=== PATIENT | female | born 1970 | race Caucasian/White ===

== ENCOUNTER 2018-05-08 19:31 | Observation (INO) | payer OTHER, SELFPAY ==
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
[2018-05-08] VITALS (12 sets, daily range): BP systolic 83–120; BP diastolic 56–80; PULSE 50–72; RESP 12–16; TEMP 36.3–37.2; O2SAT 92–100; BMI 21.5; BMI 21.4
--- NOTE | 2018-05-08 16:22 | DCINST_ITS ---
Discharge Diet: No Restrictions Discharge Activity: Return to Normal Activity, May not drive while taking narcotic pain medications. Lifting Restrictions: no lifting greater than 50 pounds for one month Call your doctor if your incision/area has: Continuous Slow Oozing, Foul Smelling Discharge Call your doctor if you observe: Fever of 101 or Higher Additional Dressing/Incision Instructions:: Leave dressing in place. May get wet in shower. Do not soak - no tub baths/swimming Allergies/Adverse Reactions: Allergies ciprofloxacin [From Cipro] Allergy (Verified 05/08/18 13:56) Other acetaminophen Adverse Reaction (Verified 05/08/18 13:56) Nausea adhesive tape Adverse Reaction (Verified 05/08/18 13:56) Rash azithromycin Adverse Reaction (Verified 05/08/18 13:56) Nausea Penicillins [PCN] Adverse Reaction (Verified 05/08/18 13:56) Nausea Medications to take at Discharge Biotin 1 mg PO DAILY 12/29/16 Calcium (Elemental) [Os-Nikolay 500] 500 mg PO DAILY@0800 05/07/18 Ibuprofen [Motrin] 600 mg PO Q6H PRN PRN 05/07/18 Vitamin B Complex 1 each PO DAILY 05/07/18 Oxycodone [Oxyir] 5 mg PO Q8H PRN PRN 5 Days #15 tab 05/08/18 proMETHazine tablet [Phenergan tablet] 25 mg PO Q6H PRN PRN 5 Days #5 tab 05/09/18 The following prescriptions were given: proMETHazine tablet [Phenergan tablet] 25 mg PO Q6H PRN PRN 5 Days #5 tab PRN Reason: Nausea/Vomiting Oxycodone [Oxyir] 5 mg PO Q8H PRN PRN 5 Days #15 tab PRN Reason: Mod-Severe Pain (4-10/10) Primary Care Physician: Rebecca Sweeney MD [Primary Care Provider] - Test Results: Test results from this visit will be discussed in further detail at your follow- up appointment, if applicable. Please Follow Up With: Jennifer Salgado MD - call When: to be seen in 1 week, please call for date and time, thank you
[2018-05-08] MEDS: Bupivacaine 0.25% 30 ML Vial (16:40)
--- NOTE | 2018-05-08 17:18 | PCM.OPRPT ---
Report of Operation Date of Procedure: 05/08/18 Pre-Operative Diagnosis: right groin pain, history of bulge in the area Post-Operative Diagnosis: weakened fascia of Hasselbach's triangle Surgery/Procedure Performed:: right inguinal hernia repair with mesh Description of Surgical Findings:: weakened Hasselbach's triangle fascia Type of Anesthesia:: Local MAC Anesthesiologist: Sarkis Holloway Specimen's removed: none Estimated Blood Loss (mL): < 5 Fluids Replaced: 400 ml RL Description of Procedure: After informed consent was obtained, patient was brought to the Operating Room. Appropriate time out protocol was followed. She was then placed in the supine position. The patient was then placed under anesthesia. The lower torso and the right groin area and genitalia were then prepped with a surgical skin preparation and appropriate sterile surgical drapes were placed. The anatomical landmarks were identified and after anesthetizing the skin and subcutaneous tissues with local anesthetic with epinephrine, a transverse skin incision was made above the level of the internal inguinal ring. The subcutaneous tissues were then sharply dissected down to the external oblique fascia and any hemorrhage was adequately controlled with electrocoagulation. The external oblique was then divided obliquely along the fibers and a muscle-splitting incision was then made to divide the internal oblique musculature and fascia. The transversalis fascia was then identified and was then incised parallel to the inferior hypogastric vessels. The preperitoneal space was then entered. Blunt dissection was then done to identify out Harry's ligament, the pubic tubercle and a large area surrounding these landmarks for placement of the mesh. The femoral vessels were identified. The patient did not have a femoral hernia. There was no indirect inguinal hernia sac noted. The fascial area of Hasselbach's triangle was weakened but no actual defect was palpated. Because of the patient noting a bulge in the area and complaint of pain, then a medium size right sided 3D Max mesh was then placed in the preperitoneal space such that it would be overlapping medially beyond the pubic tubercle and overlapping inferior to Harry's ligament. The patient was then placed in the reversed [place] position to ensure that the mesh was laid out properly according to compressor house operator's guidelines. The mesh covered the entire wound opening also. The internal oblique fascia was then closed using interrupted 0 Vicryl suture. One of the sutures was used to lock the mesh into position. Hemostasis was carefully controlled with electrocoagulation. The external oblique fascia was then reapproximated using a running 0 Vicryl suture. This was carefully done to avoid any entrapment of blood vessels/nerves. Janice's fascia was closed using Vicryl suture in an interrupted simple fashion. The skin incision was closed with 4-0 Monocryl in a running subcuticular fashion. Cavilon and Steri-Strips were used to reinforce the skin closure and appropriate sterile dressing was applied. The patient was extubated. The patient tolerated the procedure well and there was no evidence of any complications. The patient was brought to the Recovery Room in stable condition. Grafts/Implants Used: Bard 3D Max Mesh Lot [id number] exp 2022-12-13 ref [id number] - Complications none noted - Admit VTE Documentation VTE Present on Admission: Yes VTE Mechan Device Prophylaxis: SCD's
--- NOTE | 2018-05-08 17:22 | OP.PCM_ITS ---
Report of Operation Date of Procedure: 05/08/18 Pre-Operative Diagnosis: right groin pain, history of bulge in the area Post-Operative Diagnosis: weakened fascia of Hasselbach's triangle Surgery/Procedure Performed:: right inguinal hernia repair with mesh Description of Surgical Findings:: weakened Hasselbach's triangle fascia Type of Anesthesia:: Local MAC Anesthesiologist: Sarkis Holloway Specimen's removed: none Estimated Blood Loss (mL): < 5 Fluids Replaced: 400 ml RL Description of Procedure: After informed consent was obtained, patient was brought to the Operating Room. Appropriate time out protocol was followed. She was then placed in the supine position. The patient was then placed under anesthesia. The lower torso and the right groin area and genitalia were then prepped with a surgical skin preparation and appropriate sterile surgical drapes were placed. The anatomical landmarks were identified and after anesthetizing the skin and subcutaneous tissues with local anesthetic with epinephrine, a transverse skin incision was made above the level of the internal inguinal ring. The subcutaneous tissues were then sharply dissected down to the external oblique fascia and any hemorrhage was adequately controlled with electrocoagulation. The external oblique was then divided obliquely along the fibers and a muscle-splitting incision was then made to divide the internal oblique musculature and fascia. The transversalis fascia was then identified and was then incised parallel to the inferior hypogastric vessels. The preperitoneal space was then entered. Blunt dissection was then done to identify out Harry's ligament, the pubic tubercle and a large area surrounding these landmarks for placement of the mesh. The femoral vessels were identified. The patient did not have a femoral hernia. There was no indirect inguinal hernia sac noted. The fascial area of Hasselbach's triangle was weakened but no actual defect was palpated. Because of the patient noting a bulge in the area and complaint of pain, then a medium size right sided 3D Max mesh was then placed in the preperitoneal space such that it would be overlapping medially beyond the pubic tubercle and overlapping inferior to Harry's ligament. The patient was then placed in the reversed [place] position to ensure that the mesh was laid out properly according to uniform room attendant's guidelines. The mesh covered the entire wound opening also. The internal oblique fascia was then closed using interrupted 0 Vicryl suture. One of the sutures was used to lock the mesh into position. Hemostasis was carefully controlled with electrocoagulation. The external oblique fascia was then reapproximated using a running 0 Vicryl suture. This was carefully done to avoid any entrapment of blood vessels/nerves. Janice's fascia was closed using Vicryl suture in an interrupted simple fashion. The skin incision was closed with 4-0 Monocryl in a running subcuticular fashion. Cavilon and Steri-Strips were used to reinforce the skin closure and appropriate sterile dressing was applied. The patient was extubated. The patient tolerated the procedure well and there was no evidence of any complications. The patient was brought to the Recovery Room in stable condition. Grafts/Implants Used: Bard 3D Max Mesh Lot [id number] exp 2022-12-13 ref [id number] - Complications none noted - Admit VTE Documentation VTE Present on Admission: Yes VTE Mechan Device Prophylaxis: SCD's
[2018-05-08] MEDS: oxyCODONE 5 MG Tablet PO (18:49)
[2018-05-08] MEDS: Ondansetron 4 MG/2 ML Vial IV (21:54)
[2018-05-08] MEDS: Lactated Ringers 1,000 ML 75 ML IV (21:54)
[2018-05-08] MEDS: proMETHazine 25 MG/ML Syringe 12.5 MG IM (23:22)
[2018-05-09 01:45] VITALS: BP 98/67; PULSE 52; RESP 16; TEMP 37; O2SAT 94
[2018-05-09] MEDS: oxyCODONE 5 MG Tablet PO ×2 (05:47→09:28)
--- NOTE | 2018-05-09 07:30 | PCM.PN.SRG ---
Subjective: Patient feels sore, she said she had nausea because of the medications given by IV, seems to tolerate oxyir, able to urinate - Physical Exam General: Alert, Oriented x3 Oral: Moist Mucosa Neck: Supple Abdomen: Soft, - - dressing intact Vital Signs Temp Pulse Resp BP Pulse Ox 98.6 F 52 L 16 98/67 94 05/09/18 01:45 05/09/18 01:45 05/09/18 01:45 05/09/18 01:45 05/09/18 01:45 Oxygen Flow Rate (L/min) 2 Oxygen Delivery Method Room Air Weight: 66.678 kg Body Mass Index (BMI) 21.4 Intake and Output for Last 24 Hours 05/07/18 05/08/18 05/09/18 23:59 23:59 23:59 Intake Total 1500 / 1500 575 / 575 Output Total 800 / 800 Balance 1500 / 1500 -225 / -225 Medical Necessity - Tobacco Use Smoking Status: Never smoker Tobacco Use: Non-smoker Assessment/Plan POD#1 s/p right inguinal hernia repair - admitted overnight for pain and nausea control Plan: d/c to home
[2018-05-09 09:25] VITALS: BP 105/71; PULSE 65; RESP 16; TEMP 37.2; O2SAT 96
== END 2018-05-09 10:52 | disposition home or self-care (01) ==
LOC: SDC 19:48 → MS2 05-09 00:21
PROVIDERS: Admitting Provider Surgery; Family Provider Family Medicine; PCP Family Medicine; Referring Provider Surgery; Visit Provider Surgery
PROC: (CPT 49505; principal; 2018-05-08 14:50)
DX: K40.90 Unilateral inguinal hernia, without obstruction or gangrene, not specified as recurrent (principal); J45.909 Unspecified asthma, uncomplicated; Z87.891 Personal history of nicotine dependence
CPT/HCPCS: 49505; 96361; 96372; 96374; 99218; J7120; C1781; G0378; G0379; J2405

== ENCOUNTER 2019-06-16 17:38 | Emergency (ER) | payer OTHER, SELFPAY ==
[2018-05-08 19:40] VITALS: BMI 21.4
[2019-06-16] VITALS (7 sets, daily range): BP systolic 106–130; BP diastolic 62–100; PULSE 59–65; RESP 12–17; TEMP 36.4–36.7; O2SAT 96–100; BMI 23.0
--- NOTE | 2019-06-16 17:43 | NURSING ---
NO OLD EKGS
--- NOTE | 2019-06-16 17:50 | EKG12_ITS ---
Test Reason : CP Blood Pressure : / mmHG Vent. Rate : 063 BPM Atrial Rate : 047 BPM P-R Int : 000 ms QRS Dur : 076 ms QT Int : 464 ms P-R-T Axes : 000 061 052 degrees QTc Int : 474 ms Sinus rhythm Abnormal ECG Confirmed by JOSE JUAN GARCIA, SANDEE ([id number]), associate entertainment editor NOLAN TSE ([id number]) on 06/23/2019 1:59:42 PM Referred By: GODWIN Confirmed By:CHERYL MANZANO MD
--- NOTE | 2019-06-16 17:51 | ED.VIS.GEN ---
History of Present Illness Chief Complaint: Chest Pain Informant: Patient Onset: Yesterday Timing: Continuous - Today the pain is been constant since 944, Intermittent - Intermittent yesterday Quality: Dull aching with episodes of sharp pain Location: Left of sternum Current Severity: Mild Maximum Severity: Severe Worsened by: Nothing Relieved by: Nothing Associated Symptoms: Radiation to left shoulder and arm with tingling to her fingertips Narrative: Patient is a 48-year-old woman who had inguinal hernia repair May 08, [address] Jennifer Salgado. Patient presents because of intermittent chest pain that started yesterday. She reports duration varies between 30 and 40 seconds. The pain is now constant since 944, [place] 31. Described as a dull ache with periods of increased sharp pain left side. There is radiation with no associated symptoms. Patient states she has history of pericardial effusion. This was diagnosed December 2018. There is no records or echo that was performed at [facility]. She denies history of PE or DVT. She denies history of autoimmune disorder and there is no family history of autoimmune disorder. She is a non-smoker. She has no risk factors for coronary disease. She denies leg pain, swelling discoloration. She denies history of GERD, hiatal hernia or peptic ulcer disease. She denies black or maroon stool. She denies shortness of breath or cough. She states she has a sore throat secondary to allergies. She has no other complaints. Prior similar symptoms: No Recent Illness/Hospitalization: Yes - Inguinal hernia repair - Past Medical History (1) Pericardial effusion Status: Resolved Past Medical History - Allergies and Home Meds Allergies/Adverse Reactions: Allergies ciprofloxacin [From Cipro] Allergy (Verified 06/16/19 17:49) Other acetaminophen Adverse Reaction (Verified 06/16/19 17:49) Nausea adhesive tape Adverse Reaction (Verified 06/16/19 17:49) Rash azithromycin Adverse Reaction (Verified 06/16/19 17:49) Nausea Penicillins [PCN] Adverse Reaction (Verified 06/16/19 17:49) Nausea Primary Care Physician: Rebecca Sweeney MD [Primary Care Provider] - Prior records reviewed: Yes Surgical History: - - Global hernia repair x2 Lives: Spouse/ Significant Other Smoking Status: Never smoker Alcohol: None Drugs: None Review of Systems General: Reports: Malaise - Malaise started 2 to 3 days ago.. Denies: Chills, Fever, Sweats Eyes: Denies: Visual changes - bilaterally, Blurred Vision - bilaterally ENT: Denies: Rhinorrhea, Sore throat Cardiovascular: Reports: Chest pain Respiratory: Denies: Dyspnea, Cough, Dyspnea on exertion, Orthopnea, Paroxysmal nocturnal dyspnea Gastrointestinal: Denies: Abdominal pain, Nausea, Vomiting, Diarrhea, Constipation, Melena, Hematochezia Genitourinary: Denies: Dysuria, Hematuria, Frequency Musculoskeletal: Reports: Extremity Pain. Denies: Myalgias, Arthralgias, Neck pain, Back pain Skin: Denies: Rash, Wounds Neurological: Reports: Parasthesia. Denies: Headache, Weakness, Numbness Psych: Denies: Depression Endocrine: Denies: Polyuria, Polydipsia Hematologic: Denies: Easy bruising, Easy bleeding Physical Exam Vital Signs/Narrative: Vital Signs Temp Pulse Resp BP Pulse Ox 06/16/19 17:41 98.1 F 65 16 130/100 H 99 Inital Vital Signs reviewed: Yes General: Well nourished, Well developed, No Acute Distress Head: Normocephalic, Atraumatic Eyes: Perrl, EOMI. Negative for: Pale conjunctiva, Scleral icterus ENT: Moist mucous membranes, No rhinorrhea. Negative for: Nasal congestion Neck: Supple, Nontender, No lymphadenopathy, No JVD Cardiovascular: Regular rate, Regular rhythm, No murmurs, Normal S1, Normal S2 Respiratory: No distress, CTA bilaterally, Chest nontender Abdomen: Soft, Nontender, Nondistended, Normal bowel sounds Back: Nontender, Normal Inspection Extremities: Nontender, No edema, - - There is no asymmetry, swelling, discoloration, leg vein distention, palpable cords or tenderness along the distribution of the deep venous system.. Negative for: Calf Tenderness Skin: Normal color, No rash, No Trauma. Negative for: Cyanosis, Diaphoresis, Jaundice Neurological: Alert, Oriented x3, Cranial nerves II-XII grossly intact, Normal Strength, Normal Sensation Psychological: Normal affect, Normal Mood Diagnostic/Tx/Re-eval Chest X-Ray - ED: 2 View, Read by ED Physician, - - 2 view chest x-ray was interpreted by me at 1814 as normal. The cardiac size and silhouette are normal. Lung parenchyma is normal. There is no evidence of infiltrate, effusion or pneumothorax. Osseous structures are normal. Impressions Chest X-Ray 06/16/19 18:02 IMPRESSION: No acute cardiopulmonary pathology Electronically Signed: Srinivasa Salazar MD at 18:16 EDT , Service support , 06/16/19 18:02 Chest PA and Lateral [RAD] Stat Laboratory Results 06/16/19 06/16/19 06/16/19 17:48 17:48 17:48 WBC 5.4 RBC 3.73 L Hgb 12.0 Hct 36.2 L MCV 97.1 MCH 32.2 H MCHC 33.1 RDW Std Deviation 47.5 H RDW Coeff of Lei 13.3 Plt Count 222 MPV 9.7 Immature Gran % (Auto) 0.200 Neut % (Auto) 37.9 L Lymph % (Auto) 47.7 H [place] % (Auto) 9.1 Eos % (Auto) 4.7 Baso % (Auto) 0.4 Absolute Neuts (auto) 2.0 Absolute Lymphs (auto) 2.56 Nucleated RBC % 0 D-Dimer Quant (PE/DVT) Cancelled Sodium 141 Potassium 3.8 Chloride 109 H Carbon Dioxide 28.0 Anion Gap 4 L BUN 16 Creatinine 0.80 Estim Creat Clear Calc 89.88 Est GFR (MDRD) Af Amer 98 Est GFR (MDRD) Non-Af 81 BUN/Creatinine Ratio 20.0 Glucose 106 Calcium 9.2 Troponin I < 0.015 06/16/19 20:40 WBC RBC Hgb Hct MCV MCH MCHC RDW Std Deviation RDW Coeff of Eli Plt Count MPV Immature Gran % (Auto) Neut % (Auto) Lymph % (Auto) [place] % (Auto) Eos % (Auto) Baso % (Auto) Absolute Neuts (auto) Absolute Lymphs (auto) Nucleated RBC % D-Dimer Quant (PE/DVT) Sodium Potassium Chloride Carbon Dioxide Anion Gap BUN Creatinine Estim Creat Clear Calc Est GFR (MDRD) Af Amer Est GFR (MDRD) Non-Af BUN/Creatinine Ratio Glucose Calcium Troponin I < 0.015 Patient's work-up was unremarkable including 3-hour delta troponin. Patient's heart score is 1. Since patient is low risk with normal EKG and normal delta she will be discharged to home to follow-up with her primary care physician. She was informed the etiology of her chest pain is unknown. - Rhythm Strip Rhythm Strip: Sinus Rhythm Rate: 67 Ectopy: None - EKG Initial EKG Interpretation: Sinus Rhythm - Sinus rhythm with a ventricular rate of 63. Computer is reading junctional rhythm. NH interval is 180 ms. QRS duration 76 ms. QT duration 464 ms. Marshall is normal. EKG is normal. - Medical Decision Making Differential would include noncardiac chest pain, cardiac ischemia, autoimmune disorder since there is history of pericardial effusion. EKG, chest x-ray, appropriate blood work including troponin and d-dimer was ordered. A 3-hour troponin was ordered as well since pain started approximately 9 hours ago. D-dimer was not obtained since patient is PERC negative. Discharge to home to follow-up with primary care physician since work-up is negative. ED Disposition - Plan for ED Patient: Disposition: Home or Assisted Living Diagnosis: Left-sided chest pain Instructions: ED Chest Pain Atypical Unkn Cause Referrals: Rebecca Sweeney MD [Primary Care Provider] - 1-2 Days if not improving
[2019-06-16 18:02] LABS: Absolute Lymphocyte Count 2.56 X10^3/uL (0.83-4.51); Basophil# 0.02 X10^3/uL; Basophil% 0.4 % (0-1); Eosinophil# 0.25 X10^3/uL; Eosinophils% 4.7 % (0-5); Hematocrit 36.2 % (37-47); Lymphocyte # 2.56 X10^3/ul (4.0); Lymphocyte % 47.7 % (19-41); Mean Corp Hgb Conc 33.1 g/dL (32-36); Mean Corpuscular Hgb 32.2 pg (27.0-32.0); Mean Corpuscular Volume 97.1 fL (81-99); Mean Platelet Vol. 9.7 fl (6.2-12.0); Monocyte# 0.49 X10^3/uL; Monocyte% 9.1 % (0-10); NRBC Flagged by Analyzer 0 % (0-5); Neutrophil # 2.04 X10^3/uL (2.7-7.7); Neutrophil % 37.9 % (47-70); Platelet Count 222 K/mm3 (150-450); RBC Distribution Width CV 13.3 % (11.6-14.6); RBC Distribution Width SD 47.5 fl (35.1-43.9); Red Blood Count 3.73 M/mm3 (4.2-5.4); White Blood Count 5.4 K/mm3 (4.4-11.0)
--- NOTE | 2019-06-16 18:02 | RAD_ITS ---
STUDY: X-RAY CHEST REASON FOR EXAM: Female, 48 years old. chest pain. patient states Hx of pericardial effusion several months ago TECHNIQUE: PA and lateral COMPARISON: None. FINDINGS: The lungs are clear and expanded. There is no demonstrated pleural abnormality. Normal size heart. Normal mediastinum and alicia. Normal visualized pulmonary arteries. Normal visualized aortic arch and descending thoracic aorta. Dorsal spine demonstrates mild spondylosis. Normal visualized ribs, clavicles, and shoulders. There is no demonstrated abnormality of the visualized soft tissue structures of the upper abdomen. RAD/Chest PA and Lateral IMPRESSION: No acute cardiopulmonary pathology Electronically Signed: Srinivasa Salazar MD at 18:16 EDT , Service support ,
[2019-06-16 18:22] LABS: Anion Gap 4 (5-15); BUN 16 mg/dL (7-18); Calcium,Total 9.2 mg/dL (8.5-10.1); Chloride 109 mmol/L (98-107); EST Glomerular Filtration Rate 81 mL/min (>60); Est Glom Filt Rate - Afr Amer 98 mL/min (>60); Estimated Creatinine Clearance 89.88 ml/min; Glucose 106 mg/dL (74-106); Potassium 3.8 mmol/L (3.5-5.1); Sodium Level 141 mmol/L (136-145)
[2019-06-16] MEDS: Ketorolac 15 MG/ML Vial IV (18:43)
[2019-06-16] MEDS: Morphine 2 MG/ML Syringe IV (19:45)
== END 2019-06-16 21:56 | disposition home or self-care (01) ==
PROVIDERS: Emergency Provider Emergency Medicine; PCP Family Medicine
DX: R07.89 Other chest pain (principal)
CPT/HCPCS: 71046; 80048; 84484; 85025; 93005; 96374; 96375; 99284; A4216

== ENCOUNTER → 2019-12-31 | Outpatient (CLI) | payer OTHER, SELFPAY ==
[2019-12-08 10:24] VITALS: BMI 23.0
--- NOTE | 2019-12-31 15:40 | BI_ITS ---
MAMMOGRAPHY - BILATERAL SCREENING REASON FOR EXAM: Female, 49 years old. Routine annual screening examination. PERTINENT HISTORY: Non-contributory. Remote right stereotactic breast biopsy. TECHNIQUE: Digital bilateral breast beth (3D mammographic acquisition) in the CC and MLO projections. 2-D mediolateral oblique (MLO) and craniocaudad (CC) views of both breasts were obtained. CAD: Full Field Digital Mammography with Computer Added Detection was performed. COMPARISON: Comparison is made with prior occipital examination dated 10/28/2015. FINDINGS: Breast Composition: There are scattered areas of fibroglandular density. There are no dominant masses or suspicious calcifications. No other significant abnormalities are identified. There has been no significant change since the prior study. BI/SCREEN MAMM (CAD) W/BETH BILAT IMPRESSION: Stable bilateral screening mammogram. Yearly follow-up mammogram recommended. (A) ASSESSMENT CATEGORY: BIRADS Category 1: Negative. A letter regarding these results will be sent to the patient by the facility within 30 days. Approximately 10% of breast cancers are not detected by mammography. A normal mammogram should not delay biopsy of a clinically suspicious abnormality. [id number] Electronically Signed: Joselito Xiao, at 8:59 EDT , Service support ,
--- NOTE | 2019-12-31 15:55 | BD_ITS ---
STUDY: DUAL ENERGY X-RAY ABSORPTIOMETRY / DXA REASON FOR EXAM: Female, 49 years old. Age of surgical total hysterectomy quyen 35. Pat is 153.9# and 68.25 and quot; a loss of 1.5-1.75 and quot; per pat. Past use of an HRT. Past hx of smoking but a long time ago and for a short time. Has asthma and takes an inhaler and Advair prn. Takes a multi-vit. Exercises moderately to a lot. TECHNIQUE: Bone Mineral Density (BMD) measurements of lumbar spine and bilateral hips were obtained. COMPARISON: None. FINDINGS: Lumbar Spine (L1-L4): g/cm2 (0.963) / T-score (-1.7) / Z-score (-1.4) Findings are suggestive of osteopenia with a moderate fracture risk. Left Femur Total: g/cm2 (0.825) / T-score (-1.5) / Z-score (-1.0) Left Femoral Neck: g/cm2 (0.881) / T-score (-1.1) / Z-score (-0.4) Right Femur Total: g/cm2 (0.788) / T-score (-1.7) / Z-score (-1.3) Right Femoral Neck: g/cm2 (0.831) / T-score (-1.5) / Z-score (-0.7) BD/Dexa Bone Density Study IMPRESSION: The patient is considered osteopenic as outlined below according to World [employer] Organization (WHO) criteria with a moderate fracture risk. Reference Information: The T-score is the number of standard deviations above or below the standard which is normal for young adults at their peak bone mineral density. The World Health Organization (WHO) interprets the T-scores as follows: Above -1 Normal bone density Between -1 and -2.5 Osteopenia Equal to / or below -2.5 Osteoporosis As a practical clinical guideline, osteopenia may be graded as follows: Mild -1 through -1.5 Moderate -1.6 through -2.0 Severe -2.1 through -2.4 The Z-score is the number of standard deviations above or below age-matched controls. A Z-score of less than -1.5 would be considered abnormal. References: 1. NIH Osteoporosis and Related Bone Diseases www osteo.org 2. International Society for Clinical Densitometry www iscd.org 3. National Osteoporosis Foundation www nof.org Electronically Signed: Joselito Xiao, at 13:31 EDT , Service support ,
== END | disposition home or self-care (01) ==
LOC: OPBD 15:30
PROVIDERS: PCP Family Medicine; Referring Provider Nurse Practitioner Women's Health; Visit Provider Nurse Practitioner Women's Health
DX: M85.80 Other specified disorders of bone density and structure, unspecified site (principal); Z12.31 Encounter for screening mammogram for malignant neoplasm of breast
CPT/HCPCS: 77063; 77067; 77080

== ENCOUNTER 2020-02-25 16:06 | Emergency (ER) | payer OTHER, SELFPAY ==
[2019-12-08 10:24] VITALS: BMI 23.0
[2020-02-25 16:06] VITALS: BP 114/87; PULSE 74; RESP 18; TEMP 36.6; O2SAT 98; BMI 23.4
[2020-02-25 16:11] VITALS: BP 114/87; PULSE 87; RESP 16; TEMP 36.6; O2SAT 99
--- NOTE | 2020-02-25 16:22 | EKG12_ITS ---
Test Reason : CP Blood Pressure : / mmHG Vent. Rate : 064 BPM Atrial Rate : 064 BPM P-R Int : 162 ms QRS Dur : 082 ms QT Int : 428 ms P-R-T Axes : 006 048 034 degrees QTc Int : 441 ms Normal sinus rhythm Nonspecific ST abnormality Abnormal ECG Confirmed by NEHA GARCIA, JEFFREY ([id number]), editor dictionary NAYLA ARAGON ([id number]) on 02/26/2020 2:19:31 PM Referred By: PAULINA/REBEL Confirmed By:JEFFREY SOLOMON MD
--- NOTE | 2020-02-25 16:24 | ED.VISSUMM ---
- ER Visit Summary Date of Service: 02/25/20 Chief Complaint: Chest pain, shortness of breath History of Present Illness: The patient is a 49 F who has chest pain shortness of breath. Been ongoing for about 3 days. Her pain is burning and stabbing. She has had a very slight cough. 2 kids in her house are Covid positive. Her doctor told her to assume that she is Covid positive. She has no history of coronary disease. She does have a history of a pericardial effusion last year but they do not know the cause of this. She has an asthma history and has been using her inhaler at home. She denies any significant fevers. Physical Examination: Vital signs reviewed. HEENT exam unremarkable. Heart is regular rate and rhythm without murmurs. Lungs are clear to auscultation. Abdomen is soft and nontender. Extremities reveal no edema. Peripheral pulses are equal. Skin exam normal. Neurologic exam normal. Test Results: EKG sinus rhythm with a rate of 64. No ST changes. One view chest x-ray interpreted by myself and radiologist shows no acute findings. Hemoglobin is 11.8, chloride 109. Troponin normal Emergency Department Course and Treatment: Aspirin. She was still having chest pain so I gave her some morphine. She has had multiple days of continuous chest pain. With a normal EKG and troponin I feel this is not cardiac in nature. This is likely just due to coronavirus. She is living with 2 positives so I feel that she likely has it. She will quarantine at home. She will continue to take NSAIDs at home for her pain Treatment Plan: [] Disposition: Discharge Impression: Chest pain, presumptive coronavirus This note was generated with [email or web address] dictation software. It may contain incorrect words, spelling, and punctuation that were not noted in review of the chart prior to signing ED Disposition - Plan for ED Patient: Disposition: Home or Assisted Living Instructions: Coronavirus Disease 2019 (COVID-19): Overview Referrals: Rebecca Sweeney MD [Primary Care Provider] -
--- NOTE | 2020-02-25 16:32 | RAD_ITS ---
STUDY: X-RAY CHEST REASON FOR EXAM: Female, 49 years old. Chest pain. TECHNIQUE: Single AP portable view of the chest. COMPARISON: 06/16/2019. FINDINGS: The lungs are clear and expanded. There is no demonstrated pleural abnormality. Normal size heart. Normal mediastinum and alicia. Normal visualized pulmonary arteries. Normal visualized aortic arch and descending thoracic aorta. Normal visualized thoracic spine. Normal visualized ribs, clavicles, and shoulders. There is no demonstrated abnormality of the visualized soft tissue structures of the upper abdomen. RAD/Chest 1 View (Portable) IMPRESSION: No acute cardiopulmonary disease or major interval change. Electronically Signed: Gage Ritter DO at 16:42 EST Tel [phone], Service support ,
[2020-02-25 16:33] VITALS: O2SAT 98
[2020-02-25 16:34] VITALS: BP 115/85; PULSE 68; RESP 12; O2SAT 98
[2020-02-25] MEDS: Aspirin 81 MG TAB.CHEW 324 MG PO (16:38)
[2020-02-25 17:00] LABS: Absolute Lymphocyte Count 2.28 X10^3/uL (0.83-4.51); Absolute Neutrophil Count 2.5 X10^3/uL (2.0-7.7); Basophil# 0.03 X10^3/uL; Basophil% 0.5 % (0-1); Eosinophil# 0.29 X10^3/uL; Eosinophils% 5.2 % (0-5); Hematocrit 35.7 % (37-47); Hemoglobin 11.8 g/dL (12.0-15.0); Lymphocyte # 2.28 X10^3/ul (4.0); Lymphocyte % 40.6 % (19-41); Mean Corp Hgb Conc 33.1 g/dL (32-36); Mean Corpuscular Hgb 31.6 pg (27.0-32.0); Mean Corpuscular Volume 95.5 fL (81-99); Mean Platelet Vol. 10.1 fl (6.2-12.0); Monocyte# 0.48 X10^3/uL; Monocyte% 8.5 % (0-10); NRBC Flagged by Analyzer 0 % (0-5); Neutrophil # 2.52 X10^3/uL (2.7-7.7); Neutrophil % 44.8 % (47-70); Platelet Count 235 K/mm3 (150-450); RBC Distribution Width CV 13.2 % (11.6-14.6); RBC Distribution Width SD 46.2 fl (35.1-43.9); Red Blood Count 3.74 M/mm3 (4.2-5.4); White Blood Count 5.6 K/mm3 (4.4-11.0)
[2020-02-25 17:23] LABS: Anion Gap 6 (5-15); BUN 16 mg/dL (7-18); BUN/Creat Ratio 19.4 RATIO (10-20); Calcium,Total 9.1 mg/dL (8.5-10.1); Chloride 109 mmol/L (98-107); Creatinine, Serum 0.83 mg/dL (0.55-1.02); EST Glomerular Filtration Rate 78 mL/min (>60); Est Glom Filt Rate - Afr Amer 94 mL/min (>60); Estimated Creatinine Clearance 85.69 ml/min; Glucose 93 mg/dL (74-106); Potassium 3.5 mmol/L (3.5-5.1); Sodium Level 143 mmol/L (136-145)
[2020-02-25 17:38] VITALS: BP 113/87; PULSE 66; RESP 19; O2SAT 97
[2020-02-25 17:40] VITALS: BP 113/87; PULSE 66; RESP 19; O2SAT 97
== END 2020-02-25 17:47 | disposition home or self-care (01) ==
LOC: ED 17:45
PROVIDERS: Emergency Provider Emergency Medicine; PCP Family Medicine
DX: R07.9 Chest pain, unspecified (principal); Z20.828 Contact with and (suspected) exposure to other viral communicable diseases; J45.909 Unspecified asthma, uncomplicated
CPT/HCPCS: 71045; 80048; 84484; 85025; 93005; 99285; A4216